=== PATIENT | male | born 1950 | race Caucasian/White ===

== ENCOUNTER 2017-01-24 19:07 | Emergency (ER) | payer SELFPAY ==
[2017-01-24 20:40] LABS: HEMOGLOBIN 13.8 gm/dl (14.0-17.5); RED BLOOD COUNT 5.17 M/UL (4.20-5.50); WHITE BLOOD COUNT 7.4 K/UL (4.5-11.0)
[2017-01-24 21:12] LABS: BUN/CREATININE RATIO 11 (0-10)
== END 2017-01-24 23:23 | disposition home or self-care (01) ==
LOC: ER1 19:07
PROVIDERS: Family Medicine
DX: S09.90XA Unspecified injury of head, initial encounter (principal); S19.9XXA Unspecified injury of neck, initial encounter; S60.812A Abrasion of left wrist, initial encounter; R22.42 Localized swelling, mass and lump, left lower limb; V49.40XA Driver injured in collision with unspecified motor vehicles in traffic accident, initial encounter; Y93.89 Activity, other specified; Y92.410 Unspecified street and highway as the place of occurrence of the external cause
CPT/HCPCS: 36415; 70450; 72125; 73564; 80053; 81001; 82150; 82550; 82553; 83690; 83874; 84484; 85025; 93005; 99284

== ENCOUNTER 2020-12-28 20:22 | Inpatient (IN) | payer MEDICARE, OTHER ==
[~2020-12-28] VITALS: Ht 175.3 cm; Wt 90.7 kg
[2020-12-28 22:19] LABS: RED BLOOD COUNT 4.16 M/UL (4.20-5.50)
[2020-12-29] MEDS ORDERED: AMLODIPINE BESYL5 MG PO (08:51)
[2020-12-29] MEDS ORDERED: FINASTERIDE5 MG PO (08:51)
[2020-12-29] MEDS ORDERED: CLOPIDOGREL75 MG PO (08:51)
[2020-12-29] MEDS ORDERED: ATORVASTATIN CA40 MG PO (08:51)
[2020-12-29] MEDS ORDERED: FLOMAX 0.4 MG0.4 MG PO (08:52)
[2020-12-29] MEDS ORDERED: ISOSORBIDE MONO60 MG PO (08:53)
[2020-12-29] MEDS ORDERED: GLUCOPHAGE 500500 MG PO (08:53)
[2020-12-29] MEDS ORDERED: LISINOPRIL40 MG PO (08:53)
[2020-12-29] MEDS ORDERED: METOPROLOL TAR100 MG PO (08:54)
[2020-12-29] MEDS ORDERED: VITAMIN D31250 MCG PO (08:55)
[2020-12-29] MEDS ORDERED: RANOLAZINE ER500 MG PO (08:56)
[2020-12-30 03:53] LABS: HEMOGLOBIN 11.5 gm/dl (14.0-17.5); RED BLOOD COUNT 4.02 M/UL (4.20-5.50); WHITE BLOOD COUNT 7.2 K/UL (4.5-11.0)
[2020-12-31 03:37] LABS: HEMOGLOBIN 10.7 gm/dl (14.0-17.5); RED BLOOD COUNT 3.68 M/UL (4.20-5.50); WHITE BLOOD COUNT 7.7 K/UL (4.5-11.0)
[2020-12-31 08:13] LABS: VITAMIN D, 25-HYDROXY 64.6 ng/mL (30.0-100.0)
[2021-01-13] MEDS ORDERED: ROBAXIN 750 MG750 MG PO (11:21)
[2021-01-13] MEDS ORDERED: NORVASC5 MG PO (11:21)
[2021-01-13] MEDS ORDERED: PLAVIX75 MG PO (11:22)
[2021-01-13] MEDS ORDERED: LIPITOR40 MG PO (11:22)
[2021-01-13] MEDS ORDERED: PROSCAR5 MG PO (11:23)
[2021-01-13] MEDS ORDERED: ISOSORBIDE MONO60 MG PO (11:23)
[2021-01-13] MEDS ORDERED: LISINOPRIL40 MG PO (11:23)
[2021-01-13] MEDS ORDERED: LOPRESSOR100 MG PO (11:24)
[2021-01-13] MEDS ORDERED: GLUCOPHAGE500 MG PO (11:24)
[2021-01-13] MEDS ORDERED: FLOMAX 0.4 MG0.4 MG PO (11:25)
[2021-01-14] MEDS ORDERED: RANEXA500 MG PO (06:57)
== END 2020-12-31 16:23 | disposition home or self-care (01) | DRG 641 ==
LOC: ER1 20:22 → MED SURG 4 12-29 03:27 → CDU 12-29 03:27 → MED SURG 4 12-29 03:53
PROVIDERS: Emergency Medicine; Family Medicine; Hospitalist; Internal Medicine; ADMIT Internal Medicine
PROC: B24BZZZ Ultrasonography of Heart with Aorta (ICD-10-PCS; principal; 2020-12-29)
DX: E83.52 Hypercalcemia (principal); N17.9 Acute kidney failure, unspecified; I25.10 Atherosclerotic heart disease of native coronary artery without angina pectoris; E11.9 Type 2 diabetes mellitus without complications; R01.1 Cardiac murmur, unspecified; E87.6 Hypokalemia; Z20.822 Contact with and (suspected) exposure to COVID-19; R59.1 Generalized enlarged lymph nodes; Z91.81 History of falling; Z95.5 Presence of coronary angioplasty implant and graft; Z80.0 Family history of malignant neoplasm of digestive organs; Z87.891 Personal history of nicotine dependence; Z79.02 Long term (current) use of antithrombotics/antiplatelets; Z79.899 Other long term (current) drug therapy
CPT/HCPCS: ECHO; 36415; 70450; 71045; 80048; 80053; 81001; 82652; 82962; 83605; 83970; 84100; 84484; 85025; 85027; 85610; 85730; 93005; 93306; 99285; J1644; J7030; Q0177; U0002

== ENCOUNTER → 2021-01-06 | Outpatient (CLI) | payer MEDICARE, SELFPAY ==
[~2021-01-06] MED LIST: AMLODIPINE BESYL5 MG PO; ATORVASTATIN CA40 MG PO; CLOPIDOGREL75 MG PO; FINASTERIDE5 MG PO; FLOMAX 0.4 MG0.4 MG PO; GLUCOPHAGE 500500 MG PO; GLUCOPHAGE500 MG PO; ISOSORBIDE MONO60 MG PO; LIPITOR40 MG PO; LISINOPRIL40 MG PO; LOPRESSOR100 MG PO; METOPROLOL TAR100 MG PO; NORVASC5 MG PO; PLAVIX75 MG PO; PROSCAR5 MG PO; RANEXA500 MG PO; RANOLAZINE ER500 MG PO; ROBAXIN 750 MG750 MG PO; VITAMIN D31250 MCG PO
== END ==
LOC: KOH-I 09:16
DX: R59.1 Generalized enlarged lymph nodes (principal); E83.52 Hypercalcemia
CPT/HCPCS: 71250

== ENCOUNTER → 2021-01-13 | Outpatient (CLI) | payer MEDICARE, SELFPAY ==
[2021-01-13 11:59] LABS: HEMOGLOBIN 12.8 gm/dl (14.0-17.5); RED BLOOD COUNT 4.39 M/UL (4.20-5.50); WHITE BLOOD COUNT 6.5 K/UL (4.5-11.0)
== END ==
LOC: OPSV2 10:13
PROVIDERS: Surgery
DX: Z01.812 Encounter for preprocedural laboratory examination (principal)
CPT/HCPCS: 36415; 80048; 85027; 86850; 86900; 86901

== ENCOUNTER → 2021-01-14 | Day surgery (SDC) | payer MEDICARE, SELFPAY | END | disposition home or self-care (01) | LOC: OR 06:19 | PROVIDERS: Surgery | PROC: 07B74ZX Excision of Thorax Lymphatic, Percutaneous Endoscopic Approach, Diagnostic (ICD-10-PCS; principal; 2021-01-14 07:30) | DX: C82.11 Follicular lymphoma grade II, lymph nodes of head, face, and neck (principal); J62.8 Pneumoconiosis due to other dust containing silica; I11.0 Hypertensive heart disease with heart failure; I50.9 Heart failure, unspecified; N28.9 Disorder of kidney and ureter, unspecified; J44.9 Chronic obstructive pulmonary disease, unspecified; I25.10 Atherosclerotic heart disease of native coronary artery without angina pectoris; I25.2 Old myocardial infarction; E78.5 Hyperlipidemia, unspecified; E83.52 Hypercalcemia; K21.9 Gastro-esophageal reflux disease without esophagitis; N40.1 Benign prostatic hyperplasia with lower urinary tract symptoms; N39.41 Urge incontinence; G47.00 Insomnia, unspecified; I08.3 Combined rheumatic disorders of mitral, aortic and tricuspid valves; M19.90 Unspecified osteoarthritis, unspecified site; D64.9 Anemia, unspecified; E66.9 Obesity, unspecified; E11.9 Type 2 diabetes mellitus without complications; F41.9 Anxiety disorder, unspecified; F32.9 Major depressive disorder, single episode, unspecified; Z79.82 Long term (current) use of aspirin; Z79.02 Long term (current) use of antithrombotics/antiplatelets; Z79.84 Long term (current) use of oral hypoglycemic drugs; Z79.899 Other long term (current) drug therapy; Z87.891 Personal history of nicotine dependence; Z95.5 Presence of coronary angioplasty implant and graft; Z88.5 Allergy status to narcotic agent; Z20.822 Contact with and (suspected) exposure to COVID-19; Z68.29 Body mass index [BMI] 29.0-29.9, adult; Z91.81 History of falling | CPT/HCPCS: 82962; 88341; 88342; 88360; J0360; J0690; J2001; J2704; J2710; J3010; J7030; J7120 ==

== ENCOUNTER → 2021-01-15 | Outpatient (CLI) | payer MEDICARE, SELFPAY | LOC: MRI 14:42 | DX: M54.5 Low back pain (principal); E83.52 Hypercalcemia; R59.1 Generalized enlarged lymph nodes; M51.26 Other intervertebral disc displacement, lumbar region; M48.061 Spinal stenosis, lumbar region without neurogenic claudication; M51.27 Other intervertebral disc displacement, lumbosacral region; M48.07 Spinal stenosis, lumbosacral region | CPT/HCPCS: 72148 ==

== ENCOUNTER → 2021-01-30 | Outpatient (CLI) | payer MEDICARE | LOC: RAD 10:18 | DX: Z00.00 Encounter for general adult medical examination without abnormal findings (principal) | CPT/HCPCS: 71045 ==

== ENCOUNTER → 2021-02-20 | Outpatient (CLI) | payer MEDICARE | LOC: RAD 09:55 | DX: Z00.00 Encounter for general adult medical examination without abnormal findings (principal); R91.8 Other nonspecific abnormal finding of lung field | CPT/HCPCS: 71046 ==

== ENCOUNTER → 2021-03-12 | Outpatient (CLI) | payer MEDICARE | LOC: KOH-I 10:14 | DX: N17.9 Acute kidney failure, unspecified (principal); N28.1 Cyst of kidney, acquired | CPT/HCPCS: 76775 ==

== ENCOUNTER 2021-05-24 16:45 | Emergency (ER) | payer MEDICARE | END 2021-05-24 18:06 | disposition left against medical advice (07) | LOC: ER1 16:45 | DX: Z53.21 Procedure and treatment not carried out due to patient leaving prior to being seen by health care provider (principal) ==

== ENCOUNTER → 2021-07-28 | Outpatient (CLI) | payer MEDICARE | LOC: OPSV 07:56 → CT 08:00 | DX: C82.12 Follicular lymphoma grade II, intrathoracic lymph nodes (principal); E83.52 Hypercalcemia; M54.5 Low back pain; E86.0 Dehydration | CPT/HCPCS: 71260; 96360; 96361; Q9965 ==

== ENCOUNTER 2022-03-17 17:09 | Inpatient (IN) | payer MEDICARE ==
[~2022-03-17] VITALS: Ht 172.7 cm; Wt 83.5 kg
[~2022-03-17 17:09] MED LIST changes: -GLUCOPHAGE500 MG PO
[2022-03-17 17:47] LABS: HEMOGLOBIN 11.2 gm/dl (14.0-17.5); RED BLOOD COUNT 3.92 M/UL (4.20-5.50)
[2022-03-17 18:14] LABS: BUN/CREATININE RATIO 12 (0-10)
[2022-03-18] MEDS ORDERED: VOLTAREN ARTHRI20 GM TOP (10:21)
[2022-03-18] MEDS ORDERED: NITROGLYCERIN0.4 MG SL (10:21)
[2022-03-19 05:34] LABS: HEMOGLOBIN 10.9 gm/dl (14.0-17.5); RED BLOOD COUNT 3.85 M/UL (4.20-5.50); WHITE BLOOD COUNT 5.9 K/UL (4.5-11.0)
--- NOTE | 2022-03-19 20:23 | NUR ---
PATIENT EDUCATED ON IMPORTANCE OF WEARING MONITOR
[2022-03-20 01:46] LABS: HEMOGLOBIN 10.7 gm/dl (14.0-17.5); RED BLOOD COUNT 3.71 M/UL (4.20-5.50); WHITE BLOOD COUNT 5.8 K/UL (4.5-11.0)
[2022-03-20] MEDS ORDERED: RANEXA500 MG PO (08:55)
[2022-03-20] MEDS ORDERED: BAYER CHEWABLE81 MG PO (15:50)
== END 2022-03-20 12:28 | disposition home or self-care (01) | DRG 287 ==
LOC: ER1 17:09 → M/S 20:08 → CDU 20:08 → M/S 03-18 10:06 → PROG CARE 03-19 14:08
PROVIDERS: Internal Medicine; ADMIT Internal Medicine
PROC: B24BZZZ Ultrasonography of Heart with Aorta (ICD-10-PCS; principal; 2022-03-18)
PROC: 4A023N7 Measurement of Cardiac Sampling and Pressure, Left Heart, Percutaneous Approach (ICD-10-PCS; 2022-03-19)
PROC: B2111ZZ Fluoroscopy of Multiple Coronary Arteries using Low Osmolar Contrast (ICD-10-PCS; 2022-03-19)
DX: I25.10 Atherosclerotic heart disease of native coronary artery without angina pectoris (principal); T82.855A Stenosis of coronary artery stent, initial encounter; I35.0 Nonrheumatic aortic (valve) stenosis; N18.30 Chronic kidney disease, stage 3 unspecified; R00.2 Palpitations; I49.3 Ventricular premature depolarization; Z20.822 Contact with and (suspected) exposure to COVID-19; E11.22 Type 2 diabetes mellitus with diabetic chronic kidney disease; E78.5 Hyperlipidemia, unspecified; E83.52 Hypercalcemia; I12.9 Hypertensive chronic kidney disease with stage 1 through stage 4 chronic kidney disease, or unspecified chronic kidney disease; Z85.72 Personal history of non-Hodgkin lymphomas; Z95.1 Presence of aortocoronary bypass graft; Z83.3 Family history of diabetes mellitus; Z80.0 Family history of malignant neoplasm of digestive organs; Z88.5 Allergy status to narcotic agent; I25.2 Old myocardial infarction
CPT/HCPCS: ECHO; 36415; 71045; 78452; 80048; 80053; 82550; 82553; 82962; 83690; 84484; 85025; 85347; 93005; 93017; 93306; 96372; 99152; 99153; 99285; A9502; C1725; C1769; C1887; C1894; G0378; J1644; J1650; J2250; J2405; J2785; J3010; J7030; J7040; Q9965; U0002

== ENCOUNTER 2022-05-01 12:58 | Emergency (ER) | payer MEDICARE ==
[~2022-05-01 12:58] MED LIST changes: +BAYER CHEWABLE81 MG PO; +NITROGLYCERIN0.4 MG SL; +VOLTAREN ARTHRI20 GM TOP
[2022-05-01 16:45] LABS: RED BLOOD COUNT 2.6 M/UL (4.20-5.50); WHITE BLOOD COUNT 4.9 K/UL (4.5-11.0)
== END 2022-05-02 13:55 ==
LOC: ER1 12:58
PROVIDERS: Emergency Medicine
DX: I72.9 Aneurysm of unspecified site (principal); R06.00 Dyspnea, unspecified; E83.51 Hypocalcemia
CPT/HCPCS: 71045; 80048; 81001; 82962; 85025; 85730; 87086; 93005; 93926; 93971; 96374; 99285; J1644; Q9967